=== PATIENT | female | born 1990 | race Caucasian/White ===

== ENCOUNTER 2016-07-05 10:23 | Emergency (ER) | payer MEDICAID ==
[~2016-07-05] VITALS: Ht 152.4 cm; Wt 74.7 kg
[2016-07-05 12:13] LABS: HCG UR OBC PASS
[2016-07-05 12:30] VITALS: BP 97/60
== END 2016-07-05 12:33 | disposition home or self-care (01) ==
LOC: ED 12:15
DX: B34.9 Viral infection, unspecified (principal); Z98.51 Tubal ligation status
CPT/HCPCS: 71020; 81001; 81025; 87086

== ENCOUNTER 2018-02-24 22:32 | Emergency (ER) | payer MEDICAID ==
[~2018-02-24] VITALS: Ht 154.9 cm; Wt 86.4 kg
[2018-02-24] MEDS ORDERED: ONDANSETRON ODT 4 MG PO ONE (23:00)
[2018-02-24] MEDS ORDERED: HYDROmorphone 1 MG/ML, 1ML IM ONE (23:00)
[2018-02-24] MEDS ORDERED: ONDANSETRON ODT 4 MG ONE (23:11)
[2018-02-24] MEDS ORDERED: HYDROmorphone 2 MG/ML, 1ML ONE (23:11)
[2018-02-24 23:22] LABS: HCG UR SG 1.007 (1.003-1.030); MICROSCOPIC AUTO
[2018-02-24 23:24] LABS: BASOPHILS # (AUTO) 0.04 x10^3/uL (0-0.1); BASOPHILS % (AUTO) 1 % (0-1); EOSINOPHILS # (AUTO) 0.12 x10^3/uL (0-0.4); EOSINOPHILS % (AUTO) 2 % (1-7); LYMPHOCYTES # (AUTO) 2.78 x10^3/uL (1-3.4); LYMPHOCYTES % (AUTO) 37 % (22-44); MD NO; MEAN CORPUSCULAR HEMOGLOBIN 31.3 pg (27.0-34.8); MEAN CORPUSCULAR HGB CONC 33.6 g/dL (32.4-35.8); MEAN CORPUSCULAR VOLUME 93.3 fL (80-100); MEAN PLATELET VOLUME 8.5 fL (7.4-10.4); MONOCYTES # (AUTO) 0.38 x10^3/uL (0.2-0.8); MONOCYTES % (AUTO) 5 % (2-9); NEUTROPHILS # (AUTO) 4.19 x10^3/uL (1.8-6.8); NEUTROPHILS % (AUTO) 56 % (42-75); PLATELET COUNT 298 x10^3/uL (130-400); RED BLOOD COUNT 4.65 x10^6/uL (3.82-5.3); RED CELL DISTRIBUTION WIDTH 13.7 % (9.6-15.2)
[2018-02-24 23:28] LABS: CULTURE INDICATED? NO
[2018-02-24 23:29] LABS: ALANINE AMINOTRANSFERASE 83 U/L (12-78); ALBUMIN 3.5 g/dL (3.4-5.0); ANION GAP 4 mmol/L (5-15); CALCIUM 8.3 mg/dL (8.5-10.1); CHLORIDE 109 mmol/L (98-107); CREATININE 0.92 mg/dL (0.55-1.02)
[2018-02-24 23:32] LABS: ALKALINE PHOSPHATASE 119 U/L (45-117); BILIRUBIN,TOTAL 0.3 mg/dL (0.2-1.0); TOTAL PROTEIN 6.7 g/dL (6.4-8.2)
[2018-02-25 00:56] VITALS: BP 112/74
[2018-02-25] MEDS ORDERED: HYDROmorphone 1 MG/ML, 1ML IM ONE (01:00)
[2018-02-25] MEDS ORDERED: HYDROcodone/APAP 5/325 TABLET ONE (01:13)
[2018-02-25] MEDS ORDERED: HYDROcodone/APAP 5/325 TABLET PO ONE (01:30)
== END 2018-02-25 01:24 | disposition home or self-care (01) ==
LOC: ED 22:55
DX: R10.84 Generalized abdominal pain (principal); M54.5 Low back pain; R42 Dizziness and giddiness; R11.0 Nausea
CPT/HCPCS: 36415; 74176; 76830; 80053; 81001; 81025; 85025; 96372; 99285; J1170; Q0162

== ENCOUNTER 2020-04-07 08:37 | Emergency (ER) | payer MEDICAID ==
[~2020-04-07] VITALS: Ht 152.4 cm; Wt 83.1 kg
[2020-04-07] MEDS ORDERED: SODIUM CHLORIDE 0.9% 1,000ML IVBOLUS ONE (09:30)
[2020-04-07] MEDS ORDERED: KETOROLAC 30 MG/1 ML IVPush ONE (09:30)
[2020-04-07] MEDS ORDERED: ONDANSETRON 2MG/ML, 2ML IVPush ONE (09:30)
[2020-04-07] MEDS ORDERED: ONDANSETRON 2MG/ML, 2ML ONE (09:31)
[2020-04-07] MEDS ORDERED: KETOROLAC 30 MG/1 ML ONE (09:31)
[2020-04-07 09:36] LABS: ALBUMIN 3.8 g/dL (3.4-5.0); ANION GAP 3 mmol/L (5-15); CHLORIDE 111 mmol/L (98-107); CREATININE 0.88 mg/dL (0.55-1.02)
[2020-04-07 09:42] LABS: BASOPHILS % (AUTO) 1 % (0-1); EOSINOPHILS % (AUTO) 4 % (1-7); LYMPHOCYTES % (AUTO) 30 % (22-44); MEAN CORPUSCULAR HEMOGLOBIN 31.3 pg (27.0-34.8); MEAN CORPUSCULAR HGB CONC 33.5 g/dL (32.4-35.8); MEAN PLATELET VOLUME 9.2 fL (7.4-10.4); MONOCYTES % (AUTO) 5 % (2-9); NEUTROPHILS % (AUTO) 60 % (42-75); PLATELET COUNT 241 x10^3/uL (130-400); RED BLOOD COUNT 5.03 x10^6/uL (3.82-5.3); RED CELL DISTRIBUTION WIDTH 13.5 % (9.6-15.2)
[2020-04-07 09:43] LABS: MD NO
--- NOTE | 2020-04-07 09:47 | NUR ---
PT C/O NV, SOB, CP, SORE THROAT, COUGHING, AND CONGESTION. PT STATES THIS STARTED WITH N/V AND PROGRESSED FROM THERE. PT STATES CP STARTED YESTERDAY, 11/26, RIGHT CHEST AND RADIATES TO THE BACK. PT STATES SHE HAS HAD PENUMONIA 3X THIS YEAR, STARTED IN JUNE. PT HAS BEEN TESTED 4X FOR COVID SINCE JUNE WITH ALL RESULTS NEGATIVE. PT MEDICATED PER JUN.
[2020-04-07 09:50] VITALS: BP 102/71
[2020-04-07] MEDS ORDERED: DEXAMETHASONE 4 MG TABLET ONE (10:54)
[2020-04-07] MEDS ORDERED: DEXAMETHASONE 4 MG TABLET PO ONE (11:00)
== END 2020-04-07 11:04 | disposition home or self-care (01) ==
LOC: ED 09:22
DX: J12.9 Viral pneumonia, unspecified (principal); J06.9 Acute upper respiratory infection, unspecified; Z20.828 Contact with and (suspected) exposure to other viral communicable diseases; F17.210 Nicotine dependence, cigarettes, uncomplicated; R11.2 Nausea with vomiting, unspecified; R94.31 Abnormal electrocardiogram [ECG] [EKG]; R06.02 Shortness of breath
CPT/HCPCS: 71045; 80048; 82040; 85025; 87635; 93005; 96361; 96374; 96375; 99285; J1885; J2405; J7030

== ENCOUNTER 2020-04-17 13:27 | Emergency (ER) | payer MEDICAID ==
[~2020-04-17] VITALS: Ht 152.4 cm; Wt 85.9 kg
[2020-04-17 13:54] VITALS: BP 100/63
--- NOTE | 2020-04-17 14:05 | NUR ---
pt taken to XR
== END 2020-04-17 14:47 | disposition home or self-care (01) ==
LOC: ED 14:00
DX: B34.9 Viral infection, unspecified (principal); R07.9 Chest pain, unspecified; M79.10 Myalgia, unspecified site; Z98.51 Tubal ligation status
CPT/HCPCS: 71046; 99283

== ENCOUNTER 2020-05-25 11:08 | Emergency (ER) | payer MEDICAID ==
[~2020-05-25] VITALS: Ht 152.4 cm; Wt 86.5 kg
--- NOTE | 2020-05-25 11:25 | NUR ---
PT HERE WITH C/O N/V AND DIZZINESS X2 HOURS AGO. P;DYLAN Addendum: 05/25/20 at 1125 by YANN PLACED ON VITALS MONITORS, CALL LIGHT WITHIN REACH. ERMD AT BEDSIDE FOR EVAL.
[2020-05-25] MEDS ORDERED: SODIUM CHLORIDE 0.9% 1,000ML IVBOLUS ONE (11:30)
[2020-05-25] MEDS ORDERED: ONDANSETRON 2MG/ML, 2ML IVPush ONE (11:30)
[2020-05-25] MEDS ORDERED: MECLIZINE CHEWABLE 25 MG TAB PO ONE (11:30)
[2020-05-25] MEDS ORDERED: SODIUM CHLORIDE FLUSH 10ML SYR IVF ONE (11:30)
[2020-05-25] MEDS ORDERED: ONDANSETRON 2MG/ML, 2ML ONE (11:34)
[2020-05-25] MEDS ORDERED: MECLIZINE CHEWABLE 25 MG TAB ONE (11:35)
[2020-05-25 13:36] VITALS: BP 108/74
== END 2020-05-25 13:43 | disposition home or self-care (01) ==
LOC: ED 12:22
DX: R42 Dizziness and giddiness (principal); R11.2 Nausea with vomiting, unspecified
CPT/HCPCS: 96361; 96374; 99283; J2405; J7030